=== PATIENT | male | born 1945 | race Caucasian/White ===

== ENCOUNTER 2020-12-17 11:37 | Outpatient (CLI) | payer MEDICARE, SELFPAY ==
--- NOTE | ~2020-12-17 | XR_ITS ---
EXAMINATION: XR chest 2V DATE: 12/17/2020 12:07 INDICATION: Cough TECHNIQUE: PA and lateral views of the chest are obtained. COMPARISON: None available FINDINGS: The lungs are free of acute opacities. There is no pleural effusion or pneumothorax. The ca rdiomediastinal silhouette is normal. There is mild thoracic spondylosis. IMPRESSION: 1. No acute cardiopulmonary abnormality. Reviewed, dictated and finalized at location A. NISTRATIVE JOB TITLES
--- NOTE | ~2020-12-17 | XR_ITS ---
EXAMINATION:XR_CERV2-3V_CR DATE: 12/17/2020 12:07 INDICATION: Neck pain TECHNIQUE: AP, lateral, and odontoid views of the cervical spine are provided. COMPARISON: None FINDINGS: Alignment is normal. The odontoid is intact. No fracture is identified. The vertebral body heights are normal. There is mild loss of intervertebral disc space height throughout the cervical sp ine. Moderate facet and uncovertebral joint osteoarthritis are present throughout the cervical spine. Prevertebral soft tissues are normal. Heterotopic ossification posterior to C7 spinous process could reflect prior injury. Small degenerative osteophytes project from the anterior endplates of multiple vertebral bodies. IMPRESSION: 1. Mild cervical spondylosis without acute findings. Reviewed, dictated and finalized at location A. CE SERVICE COORDINATOR
== END 2020-12-17 11:38 | disposition home or self-care (01) ==
PROVIDERS: PCP Internal Medicine; Visit Provider Internal Medicine
DX: E78.2 Mixed hyperlipidemia (principal); M54.2 Cervicalgia; R05 Cough; I10 Essential (primary) hypertension
CPT/HCPCS: 71046; 72040

== ENCOUNTER 2021-01-04 12:50 | Outpatient (RCR) | payer MEDICARE, SELFPAY ==
--- NOTE | 2021-01-04 13:51 | PTOPEVAL ---
Thank you for referring Harmeet Garrido to [facility].? The patient is scheduled to be seen for therapy? ____x/week for ___ weeks. Please review, sign, date and return this plan of care VERN. I agree with and certify that the following plan of care is medically necessary. Referring Physician Date Admitting Provider: Attending Provider: Vinicio Rocha MD Referring Provider: *PT Outpatient Evaluation Start: 01/04/21 12:59 Freq: Status: Active Protocol: Document 01/04/21 13:00 ACR (Rec: 01/04/21 13:50 ACR [id number]) Therapy Assessment Status Assessment Status Assessment Status Evaluation Evaluation Information Problem Diagnosis neck pain Onset 11/27/20 Subjective Information Patient states that he started Query Text:As Reported By Patient/ having sharp pain on the L Family side but is unsure on the mechanism of injury about a month ago. When he looks forward, he has no pain, but once he looks to the L or down the sharp pain comes on. Patient states that he is having difficulty golfing, looking into his blind spots, looking up, and comfortably read for a long period of time . Patient states that if he turns the wrong way it may wake him up. Patient received an -ray that showed mild arthritis. Prior Level of Function Activity Level (Last 3 Months) Occupation retired Hand Dominance Right Activity of Daily Living Ability Independent Indoor/Home Mobility Independent Community Mobility Independent Stairs Ability Independent Functional Cognition (Planning, Shopping Independent , Taking Medications) Cooking Yes Cleaning Yes Laundry Yes Shopping Yes Driving Yes Pain Assessment Timing of Pain Assessment Timing of Pain Assessment Pre-Treatment Pain Scale Pain Scale Used Numeric (1 - 10) Self Report Pain Assessment Left Neck Reported Pain Level 2 Pain Description Sharp,Shooting Lowest Pain Intensity 0 Greatest Pain Intensity 9 Pain Score Pain Score 2: Self Report Interventions Used Interventions Used By Clinicians Activity or ADL's,Education,
== END 2021-02-10 15:21 | disposition home or self-care (01) ==
LOC: CHSPT 12:50
PROVIDERS: PCP Internal Medicine; Visit Provider Internal Medicine
DX: M54.2 Cervicalgia (principal)
CPT/HCPCS: 97014; 97110; 97140; 97161; G0283

== ENCOUNTER 2023-01-16 08:18 | Outpatient (CLI) | payer MEDICARE, SELFPAY ==
--- NOTE | ~2023-01-16 | XR_ITS ---
EXAMINATION: XR shoulder LT min 2V DATE: 01/16/2023 08:45 INDICATION: Left shoulder pain while lifting arm. TECHNIQUE: 4 views of left shoulder were obtained. COMPARISON: None. FINDINGS: Bone alignment is normal. No fracture. There is mild osteoarthritis of glenohumeral joint a nd moderate osteoarthritis of acromioclavicular joint. IMPRESSION: 1. Polyarticular osteoarthritis. Reviewed, dictated and finalized at location A.
== END 2023-01-16 08:19 | disposition home or self-care (01) ==
LOC: CHSIMG 08:22
PROVIDERS: PCP Internal Medicine; Visit Provider Orthopaedic Surgery
DX: M25.512 Pain in left shoulder (principal); M19.012 Primary osteoarthritis, left shoulder
CPT/HCPCS: 73030

== ENCOUNTER 2023-01-26 14:35 | Outpatient (CLI) | payer MEDICARE, SELFPAY ==
--- NOTE | ~2023-01-26 | MR_ITS ---
MRI of the left shoulder Technique: Axial proton-density fat-sat images, coronal proton density fat-sat and T2 fat-sat images, and sagittal T1-weighted and T2 fat-sat images were acquired. Clinical History: Rotator cuff tear Findings: There is advanced AC joint degenerative change. There is subacromial spur as well as bony p roductive change at the inferior margin of the distal clavicle. There is mild extrinsic impingement u mic the myotendinous junction region of the supraspinatus muscle. Coracoclavicular, coracoacromial, a nd coracohumeral ligaments appear intact. There is a probable linear low-grade articular surface tear at the distal insertion of the supraspina tus tendon. There is mild infraspinatus tendinosis. Subscapularis tendon is intact, with moderate to advanced tendinosis distally. Tendon of the long head of the biceps is intact. No definite labral tear identified. Inferior glenohumeral ligament is intact. No significant joint effusion or degenerative change at the glenohumeral joint. No fluid distention of the subacromial/subdeltoid bursa. No muscle atrophy or ed delfina. Impression: Linear low-grade articular surface partial tear at the distal insertion of the supraspinatus tendon. Moderate to advanced tendinosis of the subscapularis tendon. Advanced degenerative change of the AC joint, as detailed above. Reviewed, dictated and finalized at [facility]. Impression: Linear low-grade articular surface partial tear at the distal insertion of the supraspinatus tendon. Moderate to advanced tendinosis of the subscapularis tendon. Advanced degenerative change of the AC joint, as detailed above.
== END 2023-01-26 14:36 | disposition home or self-care (01) ==
PROVIDERS: PCP Internal Medicine; Visit Provider Orthopaedic Surgery
DX: M19.012 Primary osteoarthritis, left shoulder (principal); M77.8 Other enthesopathies, not elsewhere classified
CPT/HCPCS: 73221

== ENCOUNTER 2023-04-24 11:06 | Outpatient (CLI) | payer MEDICARE, SELFPAY ==
--- NOTE | ~2023-04-24 | XR_ITS ---
AP and lateral views of the left hip Clinical history: Pain Findings: No acute fracture or dislocation is seen. Osseous alignment is anatomic. There is mild dege nerative change of the left hip joint. Soft tissues are unremarkable. Impression: Mild degenerative change of the left hip joint. Reviewed, dictated and finalized at location . Impression: Mild degenerative change of the left hip joint.
--- NOTE | ~2023-04-24 | XR_ITS ---
XR lumbar spine 2-3V DATE: 04/24/2023 11:27 INDICATION: Low back pain, left hip pain. TECHNIQUE: AP, lateral, oblique views COMPARISON: 07/26/2017 lumbar spine FINDINGS: There is minimal dextroscoliosis of the lumbar spine. Normal alignment of the lumbar spine. No fracture or bone destruction is detected. The included T12-L 5 pedicles are intact. There is degenerative spurring throughout the lumbar spine. There is moderately severe degenerative d isc disease at L5-S1. Lumbar interspace height is otherwise relatively well preserved. Degenerative change at the apophyseal joints. The sacroiliac joints are intact. There is abdominal aortic calcification without apparent aneurysm. IMPRESSION: Degenerative changes; increased degenerative disc changes at L5-S1 since 07/26/2017 Reviewed, dictated and finalized at location L.
== END 2023-04-24 11:07 | disposition home or self-care (01) ==
LOC: CHSIMG 11:09
PROVIDERS: PCP Internal Medicine; Visit Provider Internal Medicine
DX: M25.552 Pain in left hip (principal); M54.50 Low back pain, unspecified
CPT/HCPCS: 72100; 73502

== ENCOUNTER 2023-06-04 14:34 | Outpatient (CLI) | payer MEDICARE, SELFPAY ==
--- NOTE | ~2023-06-04 | XR_ITS ---
EXAMINATION: XR knee LT 3V DATE: 06/04/2023 14:54 INDICATION: Medial left knee pain. Injury. TECHNIQUE: 3 views of left knee were obtained. COMPARISON: None. FINDINGS: Bone alignment is normal. No fracture. There is mild tricompartmental osteoarthritis. No kn ee joint effusion. IMPRESSION: 1. Mild left knee osteoarthritis. Reviewed, dictated and finalized at location E.
== END 2023-06-04 14:35 | disposition home or self-care (01) ==
LOC: CHSIMG 14:36
PROVIDERS: PCP Internal Medicine; Visit Provider Internal Medicine
DX: M25.562 Pain in left knee (principal); M17.12 Unilateral primary osteoarthritis, left knee
CPT/HCPCS: 73562

== ENCOUNTER 2023-07-10 10:33 | Outpatient (CLI) | payer MEDICARE, SELFPAY ==
--- NOTE | ~2023-07-10 | XR_ITS ---
EXAMINATION: XR lg joint inject/asp w image DATE: 07/10/2023 11:39 INDICATION: Left hip osteoarthritis with pain TECHNIQUE: A time-out was performed to verify the patient's name, date of , and procedure to b e performed. The procedure including the risks, benefits, and alternatives was discussed with the pat ient. Risks discussed included bleeding and infection. The patient understood the risks and agreed to proceed. The skin overlying the left hip joint was prepped and draped in usual sterile fashion. An esthetic was administered with 1% lidocaine subcutaneously. A 22 G needle was advanced under fluoros copic guidance into the joint. Injection of 1 mL of Omnipaque 240 confirmed intra-articular position of the needle. Subsequently, injectate consisting of 3 mL of a 2:1 mixture of 0.5% Sensorcaine: 80 mg/mL Depo-Medrol for a total dosage of 80 mg Depo-Medrol was instilled. Washout of contrast was seen confirming intra-articular administration. The needle was removed and the entry site was cleaned and dressed. There were no immediate complications. Fluoroscopy exposure time was 0.1 minutes. The tota l number of images was 2. FINDINGS: Real-time fluoroscopy demonstrates the needle in the left hip joint. Patient's pain prior t o procedure:02/14. Patient's pain following the procedure: 12/15. IMPRESSION: 1. Successful left hip joint injection of local anesthetic and steroid with decrease in the patient's presenting pain. Reviewed, dictated and finalized at location A. IMPRESSION: 1. Successful left hip joint injection of local anesthetic and steroid with dec rease in the patient's presenting pain.
== END 2023-07-10 10:34 | disposition home or self-care (01) ==
PROVIDERS: PCP Internal Medicine; Visit Provider Orthopaedic Surgery
DX: M16.12 Unilateral primary osteoarthritis, left hip (principal)
CPT/HCPCS: 20610; 77002; J1040; Q9966

== ENCOUNTER 2023-07-12 09:00 | Outpatient (CLI) | payer MEDICARE, SELFPAY ==
--- NOTE | ~2023-07-12 | MR_ITS ---
MRI of the left knee Clinical history: Pain Technique: Coronal proton density and proton density-weighted images, sagittal proton-density and T2 fat-sat images, and axial proton-density fat-saturated images were acquired. Findings: Anterior and posterior cruciate ligaments are intact. Medial collateral ligament and the la teral collateral ligament complex are intact. Popliteus tendon is intact. There is complex tearing of the posterior horn of the medial meniscus, with radial tear at the marketing community liaison ior root, and probable superimposed horizontal tearing of the posterior horn. No lateral meniscal tea r identified. There is diffuse moderate to high-grade chondral thinning in the medial and lateral compartments. The re is patchy mild chondral malacia patella. There is mild reactive marrow edema about the medial join t line. Extensor mechanism is intact. There is minimal joint effusion with small Rojo's cyst. Impression: Complex tearing of the posterior horn of the medial meniscus, including radial tear at the posterior root and probable superimposed horizontal tearing of the posterior horn. Tricompartmental chondromalacia, as detailed above. Small Rojo's cyst. Reviewed, dictated and finalized at location M. Impression: Complex tearing of the posterior horn of the medial meniscus, including radial tear at the posterior root and probable superimposed horizontal tearing of the posterior horn. Tricompartmental chondromalacia, as detailed above. Small Rojo's cyst.
== END 2023-07-12 09:01 | disposition home or self-care (01) ==
LOC: CHSIMG 09:01
PROVIDERS: PCP Internal Medicine; Visit Provider Orthopaedic Surgery
DX: S89.92XA Unspecified injury of left lower leg, initial encounter (principal); S83.232A Complex tear of medial meniscus, current injury, left knee, initial encounter; M94.262 Chondromalacia, left knee; M71.22 Synovial cyst of popliteal space [Baker], left knee
CPT/HCPCS: 73721

== ENCOUNTER 2023-10-23 10:17 | Outpatient (CLI) | payer MEDICARE, SELFPAY ==
--- NOTE | 2023-10-23 10:23 | ECG_ITS ---
Measurements Intervals [place] Rate: 60 P: 34 SC: 159 QRS: -11 QRSD: 136 T: -42 QT: 412 QTc: 413 Interpretive Statements SINUS RHYTHM INTRAVENTRICULAR CONDUCTION DELAY DELAYED PRECORDIAL R/S TRANSITION LEFT VENTRICULAR HYPERTROPHY WITH ST-T CHANGE MINIMAL Q WAVES- HIGH LATERAL LEADS BORDERLINE ST-T WAVE ABNORMALITY- INF/LAT LEADS BASELINE WANDER- II, AVR, AVL, AVF, V1 BORDERLINE ECG NO PREVIOUS ECG AVAILABLE FOR COMPARISON Electronically Signed On 10-23-2023 11:47:12 CAFE OPERATOR by Rai Harkins D.O.
== END 2023-10-23 10:18 | disposition home or self-care (01) ==
LOC: CHSCARD 10:20
PROVIDERS: PCP Internal Medicine
DX: Z01.818 Encounter for other preprocedural examination (principal); I10 Essential (primary) hypertension
CPT/HCPCS: 93005

== ENCOUNTER 2023-10-31 01:25 | Day surgery (SDC) | payer MEDICARE, SELFPAY ==
--- NOTE | 2023-10-22 15:36 | PC.NURSE ---
Report to the Outpatient Waiting Room, entrance under the green pavilion located off [facility], at time ___1130____ on date _10/31/23 . Planned Procedure Time: _1330 . Time changes happen often and if your time is changed the preop area will call you the afternoon before. - You and your visitor will be asked to self-screen and do not enter if you have any COVID symptoms. - A mask is optional within the hospital at this time. Patients may have clear liquids (water, carbonated beverages, clear teas, apple juice) until 3 hours prior to surgery( 10:30 AM ) with a maximum of 20 ounces. - No food from midnight until time of surgery - Infants may have breast milk until 4 hours before surgery, formula 6 hours prior to surgery. - Children will be allowed to drink immediately following surgery. If applicable, please bring a bottle or sippy cup to assist with drinking. Juice, water, soda, and popsicles are readily available. For infants on formula, please bring formula the day of surgery. Pacifiers are allowed. Take the following medications with a SIP of water the morning of surgery: ___NONE DO NOT STOP ANY OF YOUR OTHER PRESCRIPTION MEDICATIONS PRIOR TO SURGERY ?EXCEPT THE FOLLOWING Medications to discontinue per physician __ALL VITAMINS AND SUPPLEMENTS 3 DAYS PRE OP .LAST DOSE 10/27/23____ADVIL PER DR GAO Please no make-up, nail telugu, hairspray, perfume, deodorant, or body powder the day of surgery. No jewelry (including any body piercings) or valuables the day of surgery, leave them at home. Please take a shower or bath the night before, or the morning of, surgery with an antibacterial soap. Wear comfortable, loose fitting clothing. Children are encouraged to wear pajamas. - Jewelry must be removed prior to entering the operating room. Rings and piercings that are not removed may be cut off. - The hospital will not accept responsibility for valuables. - Please leave all valuables, including medications, at home the day of surgery. If you are going home after surgery, a licensed truck driver supervisor must drive you home. - NO public transportation without another adult if you receive anesthesia. - We recommend that an adult stay with you for 24 hours following discharge. - We also recommend that you do not drive, make important decision, drink alcoholic beverages, or take any drugs that were not prescribed by your health care provider for at least 24 hours after your discharge time. For Pediatric surgeries, we recommend two adults accompany the child home. Follow any additional instructions given to you from your surgeon. If you or anyone in your household have experienced Covid symptoms in the past week, please notify your surgeon or the nurse liaison at the phone number below for possible testing. Telephone instructions given to ___PATIENT and asked if any additional questions and then verbalized understanding. Patient advised to call surgeon office or pre surgery nurse liaison [phone] if any additional questions.
[2023-10-22 15:50] VITALS: BMI 25.9
--- NOTE | 2023-10-30 13:51 | P.PNAN_ITS ---
Anes - Initial Pre Proc Eval Procedure: Operation Date: 10/31/23 13:30 Proposed Procedures p Left Knee Arthroscopy, Proceed As Indicated - Zachery Muniz MD Date/Time: 10/30/23 13:51 Surgeon: Zachery Muniz MD Pre Op Diagnosis: left medial meniscus tear Patient Data Age: 78 Gender: M Height: 1.7 m Weight: 75.3 kg Allergies Allergy/AdvReac Type Severity Reaction Status Date / Time shellfish derived Allergy Dizziness, Verified 10/31/23 11:59 RASH Home Medications Medication Instructions Recorded Confirmed Type atorvastatin 10 mg tablet 10 mg PO DAILY 01/16/23 10/31/23 History calcium carbonate 600 mg-vitamin 1 cap PO DAILY 01/16/23 10/31/23 History D3 12.5 mcg (500 unit) capsule (Calcium 600 with Vitamin D3) mv-mn-folic 200 mcg-vit K 15 1 cap PO DAILY 01/16/23 10/31/23 History mcg-lutein 5 mg-zeaxanthin 1 mg capsule (PreserVision AREDS 2 Plus Multivit) acetaminophen 325 mg capsule 500 mg PO PRN PRN Pain 10/22/23 10/31/23 History (Tylenol) ibuprofen 200 mg tablet (Advil) 200 mg PO PRN PRN Pain 10/22/23 10/31/23 History losartan 100 1 tablet PO DAILY 10/22/23 10/31/23 History mg-hydrochlorothiazide 12.5 mg tablet chlorhexidine gluconate 4 % 1 applic topical DAILY #237 mL 10/23/23 10/31/23 Rx topical liquid (Hibiclens) Patient hx anesthesia problems: none Family hx anesthesia problems: none Results Review: All pre-operative results and documents have been reviewed as part of the pre- operative evaluation. [facility] Past Medical History Medical History (Updated 10/30/23 @ 13:51 by Brian Lao DO) Hyperlipidemia Hypertension Osteoarthritis Social History Social History (Updated 10/31/23 @ 12:33 by Brian Lao DO) Smoking packs per day: 1 Smoking cigarettes per day: 20.0 Years smoked: 20 Smoking pack-years: 20.00 Smoking status: Former smoker Tobacco type: cigarettes Smoking end date: 10/08/73 Additional smoking assessment comments: 1 cigar most days Alcohol intake: current Drinks per week: 7 Alcohol use details: 1-2 drinks most days Substance use type: does not use Living arrangements: with family Gender identity (if verbalized by the patient): Male Spiritual care concerns: No Anes - Eval Final PreProcedure Day of Procedure 10/30/23 13:51 Patient weight: overweight Heart: regular rate and rhythm Lungs: clear to auscultation Airway: Mallampati scale class II Neurological: alert and oriented Last oral intake: >/= 8 hours ASA classification: III Emergent: no Anesthetic plan: proceed Anesthesia type and monitoring: general LMA and standard monitoring Results Review: All pre-operative results and documents have been reviewed as part of the pre- operative evaluation. Informed Consent: The patient's anesthetic plan and its attendant risks and benefits were discussed with the patient/family/POA. Questions were solicited and answers provided to the satisfaction of the patient/family/POA.
--- NOTE | 2023-10-30 15:21 | SUR.PREOP ---
Patient not sure if will be able to use crutches this RN called office and they will order a walker at patient pharmacy if needed for after surgery. Patient aware.
[2023-10-31] VITALS (8 sets, daily range): BP systolic 120–155; BP diastolic 52–78; PULSE 61–84; RESP 12–18; TEMP 36.3–36.5; O2SAT 97–100
--- NOTE | 2023-10-31 07:17 | WPDHPUPDATE1 ---
History and Physical Update Update Date/Time: 10/31/23 07:17 History and Physical has been reviewed, including an updated exam of the patient. There are NO changes in the patient's condition. Risks, benefits, and alternatives have been discussed and questions answered. Patient agrees to proceed with procedure.
[2023-10-31] MEDS: CELECOXIB 200 MG CAPSULE PO (12:08)
[2023-10-31] MEDS: ACETAMINOPHEN 500 MG TABLET 1000 MG PO (12:08)
[2023-10-31] MEDS: LACTATED RINGERS 1,000 ML 30 ML IV CONT ×2 (12:15→14:13)
[2023-10-31] MEDS: ceFAZolin 2 GM/D5W 50 ML 2 GM/50 ML BAG IVPB (13:12)
[2023-10-31] MEDS: BUPivacaine HCL 0.5% PF 30 ML VIAL INFILTRATE (13:44)
--- NOTE | 2023-10-31 14:18 | W.PM.PROC2 ---
Procedure Note - Detailed Date of Procedure 10/31/23 Pre-op Diagnosis left medial meniscus tear Post-op Diagnosis Same Procedure Performed LEFT KNEE SCOPE Surgeon Zachery Muniz MD Anesthesia General Description of Procedure PATIENT WAS TAKEN TO THE OR. LEFT LEG WAS PREPPED AND DRAPED STERILE. TROCARS WERE PLACED IN THE USUAL FASHION. CAMERA WAS INTRODUCED. THERE WAS CHONDROMALACIA TO THE PATELLA FEMORAL JOINT. THERE WAS A LOT OF SYNOVITIS IN ALL COMPARTMENTS. THE MEDIAL COMPARTMENT SHOWED CHONDROMALACIA TO THE MEDIAL FEMORAL CONDYLE. A SHAVER WAS USED TO PREFORM A CHONDROPLASTY. THERE WAS A COMPLEX MEDIAL MENISCUS TEAR. THE TEAR WAS RESECTED WITH A BITER AND A SHAVER DOWN TO A SMOOTH BASE. THERE WAS A FULL THICKNESS CHONDRAL DEFECT WITH EXPOSED BONE OVER THE MEDIAL PLATEAU. THE ACL WAS INTACT. THE LATERAL MENISCUS WAS NOT TORN. THE LATERAL COMPARTMENT HAD MINIMAL CHONDROMALACIA. CHONDROPLASTY WAS PREFORMED. A SYNOVECTOMY WAS PREFORMED WELL. THE PATELLO FEMORAL JOINT UNDERWENT CHONDROPLASTY. THERE WAS GRADE 2 CHONDROMALACIA IN PART OF THE TROCHLEA AND PART OF THE PATELLA. SYNOVECTOMY WAS PREFORMED IN THE SUPERIOR MEDIAL COMPARTMENT. THE WOUNDS WERE APPROXIMATED WITH 4.0 NYLON. STERILE DRESSING WAS APPLIED. PATIENT WAS EXTUBATED. Estimated Blood Loss 5 Complications No immediate complications Condition Stable Disposition PACU
[2023-10-31] MEDS: oxyCODONE HCL (*CRX) 5 MG TAB IR PO (15:20)
== END 2023-10-31 16:07 | disposition home or self-care (01) ==
PROVIDERS: PCP Internal Medicine; Visit Provider Orthopaedic Surgery
PROC: (CPT 29870; principal; 2023-10-31 13:30)
DX: S83.232A Complex tear of medial meniscus, current injury, left knee, initial encounter (principal); M65.862 Other synovitis and tenosynovitis, left lower leg; M22.42 Chondromalacia patellae, left knee; X50.0XXA Overexertion from strenuous movement or load, initial encounter; I10 Essential (primary) hypertension; E78.5 Hyperlipidemia, unspecified; Z87.891 Personal history of nicotine dependence
CPT/HCPCS: 29881; 29876; A9270; J0690; J2371; J2405; J2704; J3010; J7120